=== PATIENT | male | born 1975 | race Caucasian/White ===

== ENCOUNTER → 2020-10-19 | Outpatient (CLI) | payer OTHER ==
[~2020-10-19] MED LIST: HABITROL 21 MG P1 EA TD; LIBRIUM CAP 2525 MG PO; THERAGRAN TAB1 EA PO; TRAMADOL HCL50 MG PO
== END ==
LOC: KOH-I 09:11
DX: M54.9 Dorsalgia, unspecified (principal); R05 Cough
CPT/HCPCS: 71046; 72040; 72070; 72100